=== PATIENT | female | born 1965 | race Asian ===

== ENCOUNTER 2016-10-04 22:36 | Emergency (ER) | payer OTHER ==
[~2016-10-04] VITALS: Ht 157.5 cm; Wt 59.1 kg
[~2016-10-04 22:36] MED LIST: IBUP-1547 PO; NOCURR
[2016-10-04 22:44] VITALS: BP 131/91
[2016-10-04 23:08] LABS: BASOPHILS % (AUTO) 0.6 % (0.0-2.0); EOSINOPHILS % (AUTO) 2.7 % (1.0-6.0); HEMATOCRIT 39.9 % (36-46); HEMOGLOBIN 13.4 g/dL (12.0-16.0); LYMPHOCYTES # (AUTO) 2.6 K/uL (1.0-4.8); LYMPHOCYTES % (AUTO) 34.3 % (22.0-44.0); MEAN CORPUSCULAR HEMOGLOBIN 30.4 pg (26.0-34.0); MEAN CORPUSCULAR HGB CONC 33.6 G/dL (31.0-37.0); MEAN CORPUSCULAR VOLUME 90 fL (80-100); MONOCYTES # (AUTO) 0.4 K/uL (0.1-1.0); MONOCYTES % (AUTO) 5.8 % (2.0-9.0); NEUTROPHILS # (AUTO) 4.3 K/uL (1.8-7.7); NEUTROPHILS % (AUTO) 56.6 % (40.0-70.0); PLATELET COUNT (AUTO) 277 K/uL (150-450); RED BLOOD CELL COUNT(AUTO) 4.41 MIL/uL (4.00-5.20); RED CELL DISTRIBUTION WIDTH 12.3 % (11.5-14.5); WHITE BLOOD COUNT (AUTO) 7.6 K/uL (4.5-11.0)
[2016-10-04 23:11] LABS: APPEARANCE,URINE CLOUDY (CLEAR); GLUCOSE, URINE (UA) NEGATIVE (NEGATIVE); KETONES,URINE NEGATIVE (NEGATIVE); LEUKOCYTE ESTERASE ,URINE SMALL (NEGATIVE); OCCULT BLOOD,URINE NEGATIVE (NEGATIVE); PH,URINE 5.5 (5.0-8.0); PROTEIN,URINE NEGATIVE (NEGATIVE)
[2016-10-04 23:14] LABS: ADD UA MICROSCOPIC YES
[2016-10-04 23:20] LABS: ANION GAP 8 mmol/L (8-16); CALCIUM, TOTAL 8.7 mg/dL (8.8-10.5); CARBON DIOXIDE 29 mmol/L (22-29); CHLORIDE 105 mmol/L (98-107); CREATININE 0.93 mg/dL (0.60-1.30); GLOMERULAR FILTR. RATE CALC > 60 mL/min (>60); POTASSIUM 3.4 mmol/L (3.5-5.1); SODIUM SERUM 142 mmol/L (136-145); UREA NITROGEN, BLOOD 11 mg/dL (7-18)
[2016-10-04 23:25] LABS: RBC,URINE None Seen /HPF (0-2)
[2016-10-04 23:26] LABS: ALANINE AMINOTRANSFERASE 33 U/L (12-78); ALBUMIN 3.8 g/dL (3.4-5.0); ASPARTATE AMINOTRANSFERASE 45 U/L (15-37); BILIRUBIN,TOTAL 0.3 mg/dL (0.1-1.0); TOTAL PROTEIN, SERUM 6.8 g/dL (6.4-8.2)
[2016-10-04 23:26] LABS: SQUAMOUS EPITHELIAL CELL,UR Moderate /LPF (None Seen)
== END 2016-10-04 23:35 | disposition left against medical advice (07) ==
LOC: EMS 22:36
DX: R10.9 Unspecified abdominal pain (principal); Z53.21 Procedure and treatment not carried out due to patient leaving prior to being seen by health care provider
CPT/HCPCS: 87086; 99281

== ENCOUNTER 2017-10-20 15:42 | Emergency (ER) | payer OTHER ==
[~2017-10-20] VITALS: Ht 157.5 cm; Wt 59.1 kg
[2017-10-20 17:33] VITALS: BP 119/67
== END 2017-10-20 18:09 | disposition home or self-care (01) ==
LOC: EMS 15:46
DX: J01.90 Acute sinusitis, unspecified (principal); F17.210 Nicotine dependence, cigarettes, uncomplicated
CPT/HCPCS: 99283

== ENCOUNTER 2020-01-06 22:47 | Emergency (ER) | payer SELFPAY ==
[~2020-01-06] VITALS: Ht 157.5 cm; Wt 72.7 kg
[2020-01-06 22:52] VITALS: BP 132/67
== END 2020-01-06 23:00 | disposition left against medical advice (07) ==
LOC: EMS 22:47
DX: Z03.818 Encounter for observation for suspected exposure to other biological agents ruled out (principal); Z53.21 Procedure and treatment not carried out due to patient leaving prior to being seen by health care provider

== ENCOUNTER 2020-05-14 20:31 | Emergency (ER) | payer OTHER, SELFPAY ==
[~2020-05-14] VITALS: Ht 157.5 cm; Wt 61.4 kg
[2020-05-14] MEDS ORDERED: IBUP-2070 PO (20:36)
[2020-05-14 21:12] VITALS: BP 130/76
== END 2020-05-14 21:49 | disposition home or self-care (01) ==
LOC: EMS 20:33
DX: M25.572 Pain in left ankle and joints of left foot (principal); Z90.89 Acquired absence of other organs
CPT/HCPCS: Z7502